=== PATIENT | female | born 1945 | race Native Hawaiian/Other Pacific Islander ===

== ENCOUNTER 2018-07-26 23:57 | Inpatient (IN) | payer OTHER ==
[~2018-07-26] VITALS: Ht 157.5 cm; Wt 63.2 kg
[2018-07-27] VITALS (7 sets, daily range): BP systolic 81–124; BP diastolic 54–65; TEMP 67.8–98.3; Ht 157.5 cm; Wt 63.2 kg
[2018-07-27 00:39] LABS: PLATELET COUNT 250 K/uL (152-353)
[2018-07-27 00:46] LABS: POTASSIUM 4.2 mmol/L (3.6-5.2)
[2018-07-27] MEDS ORDERED: ZITHROMAX500 MG PO (10:37)
[2018-07-27] MEDS ORDERED: IPRATROPIUM/ INH (10:40)
[2018-07-27] MEDS ORDERED: PREDNISONE10 M1 PO (10:41)
[2018-07-27] MEDS ORDERED: BENZONATATE200 MG PO (10:41)
[2018-07-27] MEDS ORDERED: AMLODIPINE BESYLATE PO (10:42)
[2018-07-27] MEDS ORDERED: PANTOPRAZOLE 40MG TA PO (10:43)
[2018-07-27] MEDS ORDERED: ALBU90AE13 INH (10:44)
[2018-07-27] MEDS ORDERED: LOSA50TA PO (10:44)
[2018-07-27] MEDS ORDERED: PRAVACHOL20 MG PO (10:48)
[2018-07-27] MEDS ORDERED: B-12 COMPL1000 MCG/M IM (10:50)
[2018-07-27] MEDS ORDERED: DOXYCYCL HYC100 M2 PO (10:51)
[2018-07-27] MEDS ORDERED: HYDROCHLOROT12.5 M1 PO (10:52)
[2018-07-27] MEDS ORDERED: PROAIR HFA INH (10:52)
[2018-07-27] MEDS ORDERED: ONDANSETRON4 M2 PO (10:53)
[2018-07-27] MEDS ORDERED: EQ STOOL SOFTE100 MG PO (10:54)
[2018-07-27] MEDS ORDERED: SMZ-TMP DS1 TAB PO (10:56)
[2018-07-27] MEDS ORDERED: HYDROXYZINE HYD25 MG PO (10:59)
[2018-07-28 04:22] VITALS: BP 116/49; TEMP 97.9
[2018-07-28 06:26] LABS: PLATELET COUNT 279 K/uL (152-353)
[2018-07-28 06:36] LABS: POTASSIUM 3.9 mmol/L (3.6-5.2)
--- NOTE | 2018-07-28 07:23 | NUR ---
REPORT RECIEVED FROM JEB MORIN. JEB STATES RR HAS BEEN AROUND 30 AND ABOVE. PPT AUDIBLY WHEEZING WHEN WALKING IN THE ROOM. DR TEMPLE NOTIFIED. DR TEMPLE ORDERED TWO VIEW CHEST XRAY AND ABG'S STAT
[2018-07-28 08:05] VITALS: BP 89/54; TEMP 98.2
--- NOTE | 2018-07-28 10:25 | NUR ---
Patient was admitted with COPD and is on a Regular diet and IBW 110=/-10% (99-121 lbs.), Kcal needs [id number], Protein 50 to 60 grams and Fluids = 1500 ml per day. 120% IBW and BMI at 24.1 wnl's for height and weihgt ratio. Recommend: Consistent Carbohydrates High Fiber
[2018-07-28 12:02] VITALS: BP 93/41; TEMP 97.6
[2018-07-28 16:05] VITALS: BP 98/46; TEMP 98.6
--- NOTE | 2018-07-28 18:30 | NUR ---
DR GOMEZ IN ER CALLED FOR REQUEST OF CPT AND SPUTUM CULTURE. DR JASON STEEN'D DECISION. WILL CONTINUE TO MONITER PT
[2018-07-28 19:51] VITALS: BP 135/60; TEMP 98.6
[2018-07-29] VITALS: BP 159/73; TEMP 97.9
[2018-07-29 03:54] VITALS: BP 127/63; TEMP 98.7
[2018-07-29 08:06] VITALS: BP 92/52; TEMP 98
--- NOTE | 2018-07-29 11:30 | NUR ---
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 REINA STATES WE NEED TO GET INTOUCH WITH PT [employer] TO INQUIRE ABOUT A TRANSFER.
--- NOTE | 2018-07-29 11:45 | NUR ---
JAKE ALVARADO TALKS TO [facility] ABOUT TRANSFERRING PT.
--- NOTE | 2018-07-29 12:00 | NUR ---
[facility] ACCEPTS PT UNDER HOSPITALIST.
[2018-07-29 12:04] VITALS: BP 157/77; TEMP 98.2
--- NOTE | 2018-07-29 13:15 | NUR ---
[facility] CALLS WITH ROOM ASSIGNMENT. PT TO GO TO ICU ROOM 3. CALLBACK NUMBER FOR REPORT GIVEV. [phone]
--- NOTE | 2018-07-29 13:30 | NUR ---
REPORT GIVEN TO ABIMBOLA AT [facility] IN ICU. WILL CALL ABIMBOLA WHEN EMS ARRIVES.
--- NOTE | 2018-07-29 14:00 | NUR ---
PT STABLE. PT RR 38 HR 107. PT CONTINUES TO USE ABD MUSCLES FOR BREATHING. PT COUGHING BUT NON PRODUCTIVE.
--- NOTE | 2018-07-29 14:30 | NUR ---
EMS HERE TO TRANSPORT PT TO [facility]. PT REQUEST HER PRN ATIVAN TO HELP EASE THE ANXIETY FOR THE RIDE. 0.5 MG ATIVAN IV PUSH GIVEN. PT STABLE AT THIS TIME NO PROBLEMS NOTED
== END 2018-07-29 15:38 | disposition short-term general hospital (02) | DRG 871 ==
LOC: ED 23:57 → MED/SURG 07-27 01:00
PROVIDERS: ADMIT Internal Medicine
DX: A41.89 Other specified sepsis (principal); J96.00 Acute respiratory failure, unspecified whether with hypoxia or hypercapnia; J44.1 Chronic obstructive pulmonary disease with (acute) exacerbation; I10 Essential (primary) hypertension; E78.49 Other hyperlipidemia; F17.210 Nicotine dependence, cigarettes, uncomplicated; K21.9 Gastro-esophageal reflux disease without esophagitis; R00.0 Tachycardia, unspecified; I95.89 Other hypotension; R06.03 Acute respiratory distress
CPT/HCPCS: 36415; 36600; 80053; 81000; 82805; 83605; 84484; 85027; 85379; 87070; 87205; 93005; 94640; 94664; 94668; 94760; 96365; 96366; 96375; 99284; J0456; J0696; J1650; J2060; J2543; J2930; J3490

== ENCOUNTER 2019-11-19 13:42 | Outpatient (CLI) | payer OTHER ==
[~2019-11-19 13:42] MED LIST: ALBU90AE13 INH; AMLODIPINE BESYLATE PO; B-12 COMPL1000 MCG/M IM; BENZONATATE200 MG PO; DOXYCYCL HYC100 M2 PO; EQ STOOL SOFTE100 MG PO; HYDROCHLOROT12.5 M1 PO; HYDROXYZINE HYD25 MG PO; IPRATROPIUM/ INH; LOSA50TA PO; ONDANSETRON4 M2 PO; PANTOPRAZOLE 40MG TA PO; PRAVACHOL20 MG PO; PREDNISONE10 M1 PO; PROAIR HFA INH; SMZ-TMP DS1 TAB PO; ZITHROMAX500 MG PO
== END 2019-11-19 19:11 | disposition home or self-care (01) ==
LOC: RAD 13:42
DX: J20.8 Acute bronchitis due to other specified organisms (principal)

== ENCOUNTER 2020-05-10 05:19 | Emergency (ER) | payer OTHER ==
[~2020-05-10] VITALS: Ht 157.5 cm; Wt 63.0 kg
[2020-05-10 05:51] LABS: POTASSIUM 5.5 mmol/L (3.6-5.2); SODIUM 146 mmol/L (136-145)
[2020-05-10 05:53] LABS: PLATELET COUNT 279 K/uL (152-353)
[2020-05-10 06:02] LABS: PARTIAL THROMBOPLASTIN TIME 22.2 SECONDS (24.5-33.6)
[2020-05-10 08:00] VITALS: BP 146/83; TEMP 97.6
== END 2020-05-10 08:00 | disposition short-term general hospital (02) ==
LOC: ED 05:23
PROVIDERS: Emergency Medicine Emergency Medical Services
PROC: 0BH17EZ Insertion of Endotracheal Airway into Trachea, Via Natural or Artificial Opening (ICD-10-PCS; principal; 2020-05-10)
PROC: 5A1935Z Respiratory Ventilation, Less than 24 Consecutive Hours (ICD-10-PCS; 2020-05-10)
PROC: 0T9B70Z Drainage of Bladder with Drainage Device, Via Natural or Artificial Opening (ICD-10-PCS; 2020-05-10)
PROC: 5A12012 Performance of Cardiac Output, Single, Manual (ICD-10-PCS; 2020-05-10)
PROC: 0YHH33Z Insertion of Infusion Device into Right Lower Leg, Percutaneous Approach (ICD-10-PCS; 2020-05-10)
PROC: 0D9670Z Drainage of Stomach with Drainage Device, Via Natural or Artificial Opening (ICD-10-PCS; 2020-05-10)
DX: I46.9 Cardiac arrest, cause unspecified (principal); S81.812A Laceration without foreign body, left lower leg, initial encounter; S41.112A Laceration without foreign body of left upper arm, initial encounter; Z79.899 Other long term (current) drug therapy; Z51.81 Encounter for therapeutic drug level monitoring
CPT/HCPCS: 36415; 43754; 51702; 80053; 81000; 82550; 82805; 84484; 85007; 85027; 85610; 85730; 93005; 96360; 96361; 96365; 96366; 96375; 99285; 99291; J0171; J0461; J2250; J2704; J3490